=== PATIENT | female | born 1930 | race Caucasian/White ===

== ENCOUNTER 2018-09-19 15:29 | Inpatient (IN) | payer MEDICARE, OTHER ==
[~2018-09-19] VITALS: Ht 160 cm; Wt 49.0 kg
[2018-09-19 17:05] LABS: BASOPHILS % (AUTO) 0.2 % (0-1); EOSINOPHILS % (AUTO) 0.2 % (0-6); HEMATOCRIT 36.7 % (35.0-45.0); HEMOGLOBIN 12.5 g/dl (12.0-16.0); LYMPHOCYTES # (AUTO) 0.6 X10'3 (1.1-4.8); LYMPHOCYTES % (AUTO) 7.1 % (21-51); MEAN CORPUSCULAR HEMOGLOBIN 32.5 PG (27.0-31.0); MEAN CORPUSCULAR HGB CONC 34.1 g/dL (33.0-36.5); MEAN CORPUSCULAR VOLUME 95.2 FL (78-98); MEAN PLATELET VOLUME 6.9 FL (7.4-10.4); MONOCYTES # (AUTO) 0.7 X10'3 (0-0.9); MONOCYTES % (AUTO) 7.8 % (2-12); NEUTROPHILS # (AUTO) 7.5 X10'3 (1.8-7.7); NEUTROPHILS % (AUTO) 84.7 % (42-75); PLATELET COUNT 275 X10'3 (140-440); RED BLOOD COUNT 3.85 X10'6 (4.20-5.60); RED CELL DISTRIBUTION WIDTH 14.2 % (11.5-14.5); WHITE BLOOD COUNT 8.9 X10'3 (4.5-11.0)
[2018-09-19 17:13] LABS: ALANINE AMINOTRANSFERASE 134 U/L (12-78); ALBUMIN 3.6 G/DL (3.4-5.0); ALBUMIN/GLOBULIN RATIO 1.1 (1.1-1.5); ALKALINE PHOSPHATASE 223 IU/L (46-116); ANION GAP 4 (8-16); ASPARTATE AMINO TRANSFERASE 42 U/L (10-37); BILIRUBIN,TOTAL 0.4 MG/DL (0.1-1.0); BLOOD UREA NITROGEN 19 MG/DL (7-18); BUN/CREATININE RATIO 23.2 (6.6-38.0); CALCIUM 8.8 MG/DL (8.5-10.1); CHLORIDE 97 MMOL/L (99-107); CREATININE 0.82 MG/DL (0.40-0.90); GLUCOSE 123 MG/DL (70-104); PARTIAL THROMBOPLASTIN TIME 28 SECONDS (22-32); SODIUM 128 MMOL/L (135-145); TOTAL CARBON DIOXIDE 26.9 MMOL/L (24-32); eGFR 66 ML/MIN
[2018-09-19] MEDS ORDERED: diltiazem 5mg/ml 5ml inj. IV ONE ×2 (18:05→20:30)
[2018-09-19] MEDS ORDERED: morphine 4 MG/ML inj SYRINge IV ONE (18:05)
[2018-09-19] MEDS ORDERED: iohexol 300mg/ml 100ml inj. ONE (18:39)
[2018-09-19] MEDS ORDERED: magnesium 2GM in 50ml NS 50 ML IV PRN (20:45)
[2018-09-19] MEDS ORDERED: acetaminophen 325mg tablet PO PRN ×2 (20:45)
[2018-09-19] MEDS ORDERED: HYDROcodone/acetaminophen 5mg/325mg tablet PO PRN (20:45)
[2018-09-19] MEDS ORDERED: magnesium 4gm in 100ml NS 100 ML IV PRN (20:45)
[2018-09-19] MEDS ORDERED: potassium Cl 20 mEq SR tablet PO PRN ×2 (20:45)
[2018-09-19] MEDS ORDERED: ondansetron/PF 4mg/2ml inj IV PRN (20:45)
[2018-09-19] MEDS ORDERED: mag hydrox/Alum hydrox/simeth 30ml oral suspension PO PRN (20:45)
[2018-09-19] MEDS ORDERED: magnesium hydroxide 30ml (MOM) UD suspension PO PRN (20:45)
[2018-09-19] MEDS ORDERED: morphine 2 MG/ML inj. syringe IV PRN ×2 (20:45)
[2018-09-19] MEDS ORDERED: magnesium Cl slow-release 64mg tablet PO PRN (20:45)
[2018-09-19] MEDS ORDERED: potassium Cl 40MEQ/NS 500ml 500 ML IV PRN ×2 (20:45)
[2018-09-19 21:02] LABS: CLARITY,URINE CLEAR (Clear); COLOR,URINE YELLOW (Yellow); GLUCOSE, URINE NEGATIVE (Neg); KETONES,URINE NEGATIVE (Neg); LEUKOCYTE ESTERASE ,URINE NEGATIVE (Neg); NITRITES, URINE NEGATIVE (Neg); OCCULT BLOOD,URINE TRACE-INTACT (Neg); PROTEIN,URINE NEGATIVE (Neg); UROBILINOGEN,URINE 0.2 E.U/dL (0.2-1.0)
[2018-09-19 21:03] LABS: UA COLLECTION TYPE STRAIGHT CATH
[2018-09-19] MEDS ORDERED: CARSR60C PO (21:09)
[2018-09-19] MEDS ORDERED: APIX2.5T PO (21:09)
[2018-09-19 21:16] LABS: BACTERIA,URINE FEW /HPF (Neg); SQUAMOUS EPITHELIAL CELL,UR FEW /LPF (FEW); WBC CLUMPS,URINE FEW /HPF (NEGATIVE)
[2018-09-20] VITALS (13 sets, daily range): BP systolic 97–159; BP diastolic 64–93
--- NOTE | 2018-09-20 00:05 | NUR ---
Patient in room PCU 3015. I have received report from Celsa MATT and had the opportunity to ask questions and assume patient care.
--- NOTE | 2018-09-20 00:30 | NUR ---
Patient arrived to room 3015A via gurney from ER and ambulated to bed with no troubles and steady gait. Son by side with all belongings. Patient oriented to room, call light, plan of care and all questions answered. Vital signs stable. Will continue to monitor.
[2018-09-20] MEDS ORDERED: diltiazem 30mg tablet PO ONE (02:30)
[2018-09-20] MEDS: CefTRIAXone/D5W-Rocephin 1gm 50 ML IV SCH (03:07)
[2018-09-20 05:22] LABS: BASOPHILS % (AUTO) 0.2 % (0-1); EOSINOPHILS # (AUTO) 0.1 X10'3 (0-0.9); EOSINOPHILS % (AUTO) 0.8 % (0-6); HEMATOCRIT 34.2 % (35.0-45.0); HEMOGLOBIN 11.7 g/dl (12.0-16.0); LYMPHOCYTES # (AUTO) 0.9 X10'3 (1.1-4.8); LYMPHOCYTES % (AUTO) 10.3 % (21-51); MEAN CORPUSCULAR HEMOGLOBIN 32.3 PG (27.0-31.0); MEAN CORPUSCULAR HGB CONC 34.3 g/dL (33.0-36.5); MEAN CORPUSCULAR VOLUME 93.9 FL (78-98); MEAN PLATELET VOLUME 7.2 FL (7.4-10.4); MONOCYTES % (AUTO) 11.7 % (2-12); NEUTROPHILS # (AUTO) 6.6 X10'3 (1.8-7.7); PLATELET COUNT 260 X10'3 (140-440); RED BLOOD COUNT 3.64 X10'6 (4.20-5.60); RED CELL DISTRIBUTION WIDTH 13.9 % (11.5-14.5); WHITE BLOOD COUNT 8.6 X10'3 (4.5-11.0)
[2018-09-20 05:32] LABS: ALBUMIN 3.1 G/DL (3.4-5.0); ANION GAP 4 (8-16); BLOOD UREA NITROGEN 16 MG/DL (7-18); BUN/CREATININE RATIO 22.5 (6.6-38.0); CALCIUM 8.3 MG/DL (8.5-10.1); CHLORIDE 98 MMOL/L (99-107); CREATININE 0.71 MG/DL (0.40-0.90); GLUCOSE 109 MG/DL (70-104); MAGNESIUM 1.9 MG/DL (1.5-2.4); POTASSIUM 4.4 MMOL/L (3.5-5.1); SODIUM 130 MMOL/L (135-145); TOTAL CARBON DIOXIDE 28.2 MMOL/L (24-32); eGFR 78 ML/MIN
--- NOTE | 2018-09-20 06:25 | NUR ---
Problems reprioritized. Patient report given, questions answered & plan of care reviewed with Keisha MATT.
--- NOTE | 2018-09-20 06:28 | NUR ---
Patient in room PCU 3015. I have received report from VERNELL Bird and had the opportunity to ask questions and assume patient care.
[2018-09-20] MEDS ORDERED: diltiazem SR 60mg capsule (twice daily) PO SCH (08:00)
[2018-09-20] MEDS: K and/or MAG REPLACEMENT MC SCH (08:00)
[2018-09-20] MEDS: furosemide 20 MG/2 ML vial IV SCH ×2 (08:17→19:45)
[2018-09-20] MEDS: lactobacillus rhamnosus 10,000 MMU CELLS/CAPSULE PO SCH ×2 (08:18→19:45)
[2018-09-20] MEDS: apixaban 2.5mg tablet PO SCH ×2 (08:18→19:45)
[2018-09-20] MEDS: diltiazem-D5W 125mg/125ml 125 ML IV SCH ×2 (13:15→16:27)
--- NOTE | 2018-09-20 13:59 | NUR ---
Messaged pharmacy for cardizem gtt. Not available in either [facility].
--- NOTE | 2018-09-20 15:30 | NUR ---
Pt declined cardizem gtt until son could return to bedside. Education re med provided to pt and daughter in law.
--- NOTE | 2018-09-20 18:33 | NUR ---
Problems reprioritized. Patient report given, questions answered & plan of care reviewed with VERNELL Patricia.
[2018-09-21] VITALS (14 sets, daily range): BP systolic 92–132; BP diastolic 60–86
[2018-09-21] MEDS: CefTRIAXone/D5W-Rocephin 1gm 50 ML IV SCH (03:08)
[2018-09-21] MEDS: diltiazem-D5W 125mg/125ml 125 ML IV SCH ×3 (04:15→23:27)
--- NOTE | 2018-09-21 06:25 | NUR ---
PAGER ID: [phone] MESSAGE: [id number] Pebbles Snyder Critical WBC 27.7. FYIDaylin Nj RN [id number] Addendum: 09/21/18 at 0631 by Briana Shaw RN Please disregard note, wrong patient.
--- NOTE | 2018-09-21 06:26 | NUR ---
Problems reprioritized. Patient report given, questions answered & plan of care reviewed with VERNELL Nj.
[2018-09-21 07:02] LABS: ALBUMIN 2.8 G/DL (3.4-5.0); ANION GAP 4 (8-16); BLOOD UREA NITROGEN 13 MG/DL (7-18); BUN/CREATININE RATIO 16.9 (6.6-38.0); CALCIUM 8.1 MG/DL (8.5-10.1); CHLORIDE 96 MMOL/L (99-107); CREATININE 0.77 MG/DL (0.40-0.90); GLUCOSE 103 MG/DL (70-104); MAGNESIUM 1.9 MG/DL (1.5-2.4); POTASSIUM 3.9 MMOL/L (3.5-5.1); SODIUM 129 MMOL/L (135-145); TOTAL CARBON DIOXIDE 29.4 MMOL/L (24-32); eGFR 71 ML/MIN
[2018-09-21 07:11] LABS: BASOPHILS % (AUTO) 0.3 % (0-1); EOSINOPHILS # (AUTO) 0.1 X10'3 (0-0.9); EOSINOPHILS % (AUTO) 1.8 % (0-6); HEMATOCRIT 34.9 % (35.0-45.0); HEMOGLOBIN 12.2 g/dl (12.0-16.0); LYMPHOCYTES % (AUTO) 14.2 % (21-51); MEAN CORPUSCULAR HEMOGLOBIN 32.6 PG (27.0-31.0); MEAN CORPUSCULAR HGB CONC 34.9 g/dL (33.0-36.5); MEAN CORPUSCULAR VOLUME 93.4 FL (78-98); MEAN PLATELET VOLUME 7.1 FL (7.4-10.4); MONOCYTES % (AUTO) 13.5 % (2-12); NEUTROPHILS # (AUTO) 5.1 X10'3 (1.8-7.7); NEUTROPHILS % (AUTO) 70.2 % (42-75); PLATELET COUNT 255 X10'3 (140-440); RED BLOOD COUNT 3.73 X10'6 (4.20-5.60); WHITE BLOOD COUNT 7.3 X10'3 (4.5-11.0)
[2018-09-21] MEDS: K and/or MAG REPLACEMENT MC SCH (08:00)
[2018-09-21] MEDS: furosemide 20 MG/2 ML vial IV SCH ×2 (09:59→20:00)
[2018-09-21] MEDS: lactobacillus rhamnosus 10,000 MMU CELLS/CAPSULE PO SCH ×2 (10:05→20:23)
[2018-09-21] MEDS: apixaban 2.5mg tablet PO SCH ×2 (10:05→20:23)
--- NOTE | 2018-09-21 10:30 | NUR ---
Received orders to ambulate patient for gas pain relief as well as to titrate cardizem drip to 7mcg/hr, at noon titrate to 5mcg, and to keep HR less than 120.
--- NOTE | 2018-09-21 17:23 | NUR ---
PAGER ID: [phone] MESSAGE: [id number] Daniel Sin Pt HR 120-130 at times, drops back to 100-110s on 5mcg/hr Levi Nj RN [id number]
--- NOTE | 2018-09-21 18:30 | NUR ---
Patient in room PCU 3015. I have received report from Ondina MATT and had the opportunity to ask questions and assume patient care.
--- NOTE | 2018-09-21 18:41 | NUR ---
Problems reprioritized. Patient report given, questions answered & plan of care reviewed with VERNELL Bird.
[2018-09-22] VITALS (8 sets, daily range): BP systolic 90–116; BP diastolic 55–76
[2018-09-22] MEDS: CefTRIAXone/D5W-Rocephin 1gm 50 ML IV SCH (02:48)
[2018-09-22 05:30] LABS: BASOPHILS # (AUTO) 0.1 X10'3 (0-0.2); BASOPHILS % (AUTO) 0.6 % (0-1); EOSINOPHILS # (AUTO) 0.2 X10'3 (0-0.9); EOSINOPHILS % (AUTO) 2.3 % (0-6); HEMATOCRIT 36.3 % (35.0-45.0); HEMOGLOBIN 12.4 g/dl (12.0-16.0); LYMPHOCYTES # (AUTO) 1.7 X10'3 (1.1-4.8); MEAN CORPUSCULAR HEMOGLOBIN 31.7 PG (27.0-31.0); MEAN CORPUSCULAR VOLUME 93.2 FL (78-98); MONOCYTES # (AUTO) 1.1 X10'3 (0-0.9); MONOCYTES % (AUTO) 12.7 % (2-12); NEUTROPHILS # (AUTO) 5.4 X10'3 (1.8-7.7); NEUTROPHILS % (AUTO) 64.4 % (42-75); PLATELET COUNT 287 X10'3 (140-440); RED CELL DISTRIBUTION WIDTH 13.6 % (11.5-14.5); WHITE BLOOD COUNT 8.3 X10'3 (4.5-11.0)
[2018-09-22 05:37] LABS: ALBUMIN 2.7 G/DL (3.4-5.0); ANION GAP 5 (8-16); BLOOD UREA NITROGEN 12 MG/DL (7-18); BUN/CREATININE RATIO 14.3 (6.6-38.0); CALCIUM 8.7 MG/DL (8.5-10.1); CHLORIDE 100 MMOL/L (99-107); CREATININE 0.84 MG/DL (0.40-0.90); GLUCOSE 96 MG/DL (70-104); MAGNESIUM 2.1 MG/DL (1.5-2.4); POTASSIUM 4.1 MMOL/L (3.5-5.1); SODIUM 134 MMOL/L (135-145); TOTAL CARBON DIOXIDE 29.2 MMOL/L (24-32); eGFR 64 ML/MIN
--- NOTE | 2018-09-22 06:05 | NUR ---
Problems reprioritized. Patient report given, questions answered & plan of care reviewed with Alma Rosa MATT.
--- NOTE | 2018-09-22 06:46 | NUR ---
Patient in room PCU 3015. I have received report from Marge MATT and had the opportunity to ask questions and assume patient care.
[2018-09-22] MEDS: K and/or MAG REPLACEMENT MC SCH (08:00)
[2018-09-22] MEDS: furosemide 20 MG/2 ML vial IV SCH ×2 (08:00→09:34)
[2018-09-22] MEDS ORDERED: diltiazem SR 60mg capsule (twice daily) PO SCH (08:30)
[2018-09-22] MEDS: lactobacillus rhamnosus 10,000 MMU CELLS/CAPSULE PO SCH ×2 (09:33→19:49)
[2018-09-22] MEDS: apixaban 2.5mg tablet PO SCH ×2 (09:34→19:49)
[2018-09-22] MEDS: furosemide 40mg tablet PO SCH ×2 (10:55→19:49)
[2018-09-22] MEDS ORDERED: diltiazem 30mg tablet PO PRN (13:25)
[2018-09-22] MEDS ORDERED: digoxin 250mcg (0.25mg) tablet PO ONE ×2 (13:50→17:30)
--- NOTE | 2018-09-22 18:07 | NUR ---
[place] documentation: I have reviewed and agree with interventions, assessments performed and documented by VERNELL Davila. [place] Medication Administration: For this medication-pass time frame, medication were reviewed, dispensed, administered and documented per hospital policy by VERNELL Davila.
--- NOTE | 2018-09-22 18:10 | NUR ---
Patient in room PCU 3015. I have received report from Valerie MATT and had the opportunity to ask questions and assume patient care.
[2018-09-22] MEDS: carvedilol 6.25mg tablet PO SCH (19:49)
--- NOTE | 2018-09-22 23:22 | NUR ---
Spoke with Dr. Villafuerte regarding pts 0230 dose of Rocephin IV, but pt does not have IV and was told she would not have to have another one, he order a 1 time dose same streagth on IM rocephin with Lidocaine.
[2018-09-23] VITALS (8 sets, daily range): BP systolic 84–122; BP diastolic 51–78
[2018-09-23] MEDS: CefTRIAXone/D5W-Rocephin 1gm 50 ML IV SCH ×2 (02:30→19:48)
[2018-09-23] MEDS ORDERED: CefTRIAXone 1000mg IM Kit (w/lidocaine diluent) IM ONE (02:30)
--- NOTE | 2018-09-23 06:02 | NUR ---
Problems reprioritized. Patient report given, questions answered & plan of care reviewed with Valerie MATT.
[2018-09-23 06:30] LABS: BASOPHILS # (AUTO) 0.1 X10'3 (0-0.2); BASOPHILS % (AUTO) 0.3 % (0-1); EOSINOPHILS # (AUTO) 0.1 X10'3 (0-0.9); EOSINOPHILS % (AUTO) 0.6 % (0-6); HEMATOCRIT 39.5 % (35.0-45.0); HEMOGLOBIN 13.2 g/dl (12.0-16.0); LYMPHOCYTES # (AUTO) 0.8 X10'3 (1.1-4.8); LYMPHOCYTES % (AUTO) 4.9 % (21-51); MEAN CORPUSCULAR HEMOGLOBIN 31.6 PG (27.0-31.0); MEAN CORPUSCULAR HGB CONC 33.4 g/dL (33.0-36.5); MEAN CORPUSCULAR VOLUME 94.6 FL (78-98); MEAN PLATELET VOLUME 6.8 FL (7.4-10.4); MONOCYTES # (AUTO) 1.5 X10'3 (0-0.9); NEUTROPHILS # (AUTO) 14.2 X10'3 (1.8-7.7); NEUTROPHILS % (AUTO) 85.2 % (42-75); PLATELET COUNT 340 X10'3 (140-440); RED BLOOD COUNT 4.18 X10'6 (4.20-5.60); RED CELL DISTRIBUTION WIDTH 13.8 % (11.5-14.5); WHITE BLOOD COUNT 16.7 X10'3 (4.5-11.0)
[2018-09-23 06:39] LABS: ALBUMIN 2.9 G/DL (3.4-5.0); ANION GAP 7 (8-16); BLOOD UREA NITROGEN 18 MG/DL (7-18); BUN/CREATININE RATIO 19.8 (6.6-38.0); CALCIUM 8.9 MG/DL (8.5-10.1); CHLORIDE 102 MMOL/L (99-107); CREATININE 0.91 MG/DL (0.40-0.90); GLUCOSE 106 MG/DL (70-104); MAGNESIUM 2.2 MG/DL (1.5-2.4); POTASSIUM 3.8 MMOL/L (3.5-5.1); SODIUM 137 MMOL/L (135-145); TOTAL CARBON DIOXIDE 27.8 MMOL/L (24-32); eGFR 58 ML/MIN
[2018-09-23] MEDS ORDERED: digoxin 125mcg (0.125mg) tablet PO ONE ×2 (07:00→07:45)
[2018-09-23] MEDS: lactobacillus rhamnosus 10,000 MMU CELLS/CAPSULE PO SCH ×2 (07:29→19:44)
[2018-09-23] MEDS: carvedilol 6.25mg tablet PO SCH ×2 (07:29→19:44)
[2018-09-23] MEDS: furosemide 40mg tablet PO SCH ×2 (07:30→19:44)
[2018-09-23] MEDS: K and/or MAG REPLACEMENT MC SCH (07:31)
[2018-09-23] MEDS: apixaban 2.5mg tablet PO SCH ×2 (08:00→19:44)
[2018-09-23] MEDS ORDERED: LIDOcaine 1%/PF 5ML 10 MG/ML VIAL ONE (09:37)
[2018-09-23] MEDS ORDERED: gelatin sponge, absorbable (Gelfoam 12-7MM) sponge TP ONE (10:10)
[2018-09-23] MEDS: amiodarone 200mg tablet PO SCH (11:25)
--- NOTE | 2018-09-23 11:28 | NUR ---
Page to XRAY: [id number] pt Merrick has active order for 2 view xray, per Dr. Monson he does want 2 view. Thank you.
[2018-09-23 12:43] LABS: LDH,BODY FLUID 75 U/L; TOTAL PROTEIN,BODY FLUID 2.8 G/DL
[2018-09-23 13:58] LABS: BFAPPEAR HAZY
[2018-09-23 13:59] LABS: BF RBC COUNT 415 /CU MM; BF WBC COUNT 480 /CU MM (0-1000); BFCOLOR YELLOW; BFVOLUME 10 ML; EOSINOPHILS,BODY FLUID 1 %; LYMPHOCYTES,BODY FLUID 79 %; MONOCYTES,BODY FLUID 10 %; NEUTROPHILS,BODY FLUID 10 %
[2018-09-23 14:02] LABS: BF MESOTHELIAL CELLS MODERATE
--- NOTE | 2018-09-23 15:49 | NUR ---
Pt on a Na-Restricted diet w/ 60g Na restriction in diet order note; this is an error and pt receiving standard 2g Na restriction RN and RD both aware as well as dietary. Addendum: 09/23/18 at [address] Amended: Links added.
--- NOTE | 2018-09-23 18:14 | NUR ---
Problems reprioritized. Patient report given, questions answered & plan of care reviewed with VERNELL Oneal.
[2018-09-24 03:18] VITALS: BP 97/63
[2018-09-24 05:48] LABS: BASOPHILS % (AUTO) 0.4 % (0-1); EOSINOPHILS # (AUTO) 0.2 X10'3 (0-0.9); EOSINOPHILS % (AUTO) 1.7 % (0-6); HEMATOCRIT 37.7 % (35.0-45.0); HEMOGLOBIN 12.7 g/dl (12.0-16.0); LYMPHOCYTES # (AUTO) 1.5 X10'3 (1.1-4.8); LYMPHOCYTES % (AUTO) 12.4 % (21-51); MEAN CORPUSCULAR HEMOGLOBIN 31.6 PG (27.0-31.0); MEAN CORPUSCULAR HGB CONC 33.8 g/dL (33.0-36.5); MEAN CORPUSCULAR VOLUME 93.7 FL (78-98); MEAN PLATELET VOLUME 6.8 FL (7.4-10.4); MONOCYTES # (AUTO) 1.1 X10'3 (0-0.9); MONOCYTES % (AUTO) 8.8 % (2-12); NEUTROPHILS # (AUTO) 9.3 X10'3 (1.8-7.7); NEUTROPHILS % (AUTO) 76.7 % (42-75); PLATELET COUNT 310 X10'3 (140-440); RED BLOOD COUNT 4.02 X10'6 (4.20-5.60); RED CELL DISTRIBUTION WIDTH 13.6 % (11.5-14.5); WHITE BLOOD COUNT 12.1 X10'3 (4.5-11.0)
[2018-09-24 06:00] VITALS: BP 112/57
[2018-09-24 06:06] LABS: ALBUMIN 2.7 G/DL (3.4-5.0); ANION GAP 2 (8-16); BLOOD UREA NITROGEN 19 MG/DL (7-18); BUN/CREATININE RATIO 16.4 (6.6-38.0); CALCIUM 8.2 MG/DL (8.5-10.1); CHLORIDE 102 MMOL/L (99-107); CREATININE 1.16 MG/DL (0.40-0.90); GLUCOSE 96 MG/DL (70-104); POTASSIUM 3.4 MMOL/L (3.5-5.1); SODIUM 136 MMOL/L (135-145); eGFR 44 ML/MIN
--- NOTE | 2018-09-24 06:32 | NUR ---
Patient in room PCU 3015. I have received report from VERNELL Oneal and had the opportunity to ask questions and assume patient care.
--- NOTE | 2018-09-24 06:36 | NUR ---
Problems reprioritized. Patient report given, questions answered & plan of care reviewed with Abisai. Addendum: 09/24/18 at 0636 by Daniele Montgomery RN Amended: Links added.
[2018-09-24] MEDS: K and/or MAG REPLACEMENT MC SCH (07:00)
[2018-09-24] MEDS: furosemide 40mg tablet PO SCH (07:30)
[2018-09-24] MEDS: amiodarone 200mg tablet PO SCH (07:30)
[2018-09-24] MEDS: apixaban 2.5mg tablet PO SCH (07:30)
[2018-09-24] MEDS: lactobacillus rhamnosus 10,000 MMU CELLS/CAPSULE PO SCH (07:30)
[2018-09-24] MEDS: carvedilol 6.25mg tablet PO SCH (07:30)
--- NOTE | 2018-09-24 09:11 | NUR ---
PAGER ID: [phone] MESSAGE: [id number] Sandi Sin: K is 3.4. May I reinstate the K replacement orders? VERNELL Barone Ext [phone]
[2018-09-24] MEDS ORDERED: potassium Cl 40MEQ/NS 500ml 500 ML IV PRN ×2 (09:20)
[2018-09-24] MEDS ORDERED: magnesium 4gm in 100ml NS 100 ML IV PRN (09:20)
[2018-09-24] MEDS ORDERED: magnesium Cl slow-release 64mg tablet PO PRN (09:20)
[2018-09-24] MEDS ORDERED: potassium Cl 20 mEq SR tablet PO PRN ×2 (09:20)
[2018-09-24] MEDS ORDERED: CARV6.253 PO (10:43)
[2018-09-24] MEDS ORDERED: POTA10CA44 PO (10:43)
[2018-09-24] MEDS ORDERED: AMIO200T40 PO (10:43)
[2018-09-24] MEDS ORDERED: FURO-150 PO (10:43)
--- NOTE | 2018-09-24 13:48 | NUR ---
Discharge at 1130. IV and tele DC'd. Educated on A-fib, follow-up and meds. Told to take BP and HR for Coreg and hold if bp >100 or HR >60 and to hold Lasix if BP >100. Meds were called into [facility] in [place] left call back number for pharmacy incase they need to contact us back. Stable per MD for DC.
== END 2018-09-24 11:30 | disposition home or self-care (01) | DRG 291 ==
LOC: ER 15:30 → PCU 3S 09-20 00:53 → CMPBEDREQ 09-21 15:12
PROVIDERS: ADMIT Hospitalist; ATTEND Hospitalist
PROC: BW211ZZ Computerized Tomography (CT Scan) of Abdomen and Pelvis using Low Osmolar Contrast (ICD-10-PCS; 2018-09-19)
PROC: 0W9B3ZX Drainage of Left Pleural Cavity, Percutaneous Approach, Diagnostic (ICD-10-PCS; principal; 2018-09-23)
DX: I50.33 Acute on chronic diastolic (congestive) heart failure (principal); J18.9 Pneumonia, unspecified organism; E87.1 Hypo-osmolality and hyponatremia; J98.11 Atelectasis; J91.8 Pleural effusion in other conditions classified elsewhere; I48.91 Unspecified atrial fibrillation; F03.90 Unspecified dementia, unspecified severity, without behavioral disturbance, psychotic disturbance, mood disturbance, and anxiety; Z79.01 Long term (current) use of anticoagulants; Z79.899 Other long term (current) drug therapy; Z90.710 Acquired absence of both cervix and uterus; E87.6 Hypokalemia
CPT/HCPCS: 32555; 36415; 71045; 71046; 74177; 80048; 80053; 80162; 81001; 82948; 83605; 83615; 83735; 84157; 84484; 85025; 85610; 85730; 87070; 87075; 87088; 89051; 93005; 93306; 96374; 96375; 96376; 99285; G0378; J0696; J1940; J2001; J2270; J3490; Q9967

== ENCOUNTER 2018-12-12 06:17 | Day surgery (SDC) | payer MEDICARE, OTHER ==
[2018-12-11 12:14] LABS: ALBUMIN 3.6 G/DL (3.4-5.0); ANION GAP 8 (8-16); BLOOD UREA NITROGEN 26 MG/DL (7-18); BUN/CREATININE RATIO 23.4 (6.6-38.0); CALCIUM 8.9 MG/DL (8.5-10.1); CHLORIDE 105 MMOL/L (99-107); CREATININE 1.11 MG/DL (0.40-0.90); GLUCOSE 96 MG/DL (70-104); POTASSIUM 4.4 MMOL/L (3.5-5.1); SODIUM 139 MMOL/L (135-145); TOTAL CARBON DIOXIDE 26.3 MMOL/L (24-32); eGFR 46 ML/MIN
[~2018-12-12] VITALS: Ht 160 cm; Wt 56.7 kg
[~2018-12-12 06:17] MED LIST: AMIO200T61 PO; APIX2.5T PO; CARV6.253 PO; FURO-150 PO
[2018-12-12] MEDS ORDERED: normal saline 1000ml 1,000 ML IV SCH (06:30)
[2018-12-12] MEDS ORDERED: amiodarone in dextrose, iso-osm 150mg/100ml bag IV ONE (06:40)
[2018-12-12] MEDS ORDERED: MIDAZolam 5mg/ml 2ml vial IV ONE (06:40)
[2018-12-12] MEDS ORDERED: morphine 10mg/ml inj. IV ONE (06:40)
[2018-12-12] MEDS ORDERED: atropine 0.1mg/ml 10ml syringe IV ONE (06:40)
[2018-12-12] MEDS ORDERED: diphenhydrAMINE 25mg capsule PO ONE (06:40)
[2018-12-12] MEDS ORDERED: LORazepam 0.5 MG tablet PO ONE (06:40)
[2018-12-12 07:03] VITALS: BP 183/77
[2018-12-12] MEDS ORDERED: AMIO200T61 PO (07:41)
--- NOTE | 2018-12-12 09:48 | NUR ---
IV D/C WITH CATH INTACT AND DRESSING WITHOUT DRAINAGE FROM IV SITE
--- NOTE | 2018-12-12 09:50 | NUR ---
PATIENT IN NORMAL SINUS RHYTHM. DR. QUINTEROS NOTIFIED. CARDIOVERSION CANCELED. NO NEW ORDERS. DR. QUINTEROS HERE TO SEE PATIENT BEFORE DISCHARGE HOME. NO DISTRESS NOTED. ALL BELONGINGS WITH PATIENT UPON DISCHARGE. FAMILY ACCOMPANIED PATIENT.
== END 2018-12-12 09:53 | disposition home or self-care (01) ==
LOC: SSTAY O 06:17
PROVIDERS: ATTEND Internal Medicine Cardiovascular Disease
DX: I48.0 Paroxysmal atrial fibrillation (principal); Z53.8 Procedure and treatment not carried out for other reasons; F03.90 Unspecified dementia, unspecified severity, without behavioral disturbance, psychotic disturbance, mood disturbance, and anxiety; I50.32 Chronic diastolic (congestive) heart failure; Z90.710 Acquired absence of both cervix and uterus; Z79.899 Other long term (current) drug therapy; Z98.890 Other specified postprocedural states; Z80.41 Family history of malignant neoplasm of ovary
CPT/HCPCS: 36415; 80048; 83880; 93005; J7030